=== PATIENT | male | born 1955 | race Caucasian/White ===

== ENCOUNTER 2018-03-05 08:41 | Emergency (ER) | payer BC, OTHER ==
[2018-03-05] MEDS ORDERED: ONDANSETRON 4 MG/2 ML VIAL ONE (08:57)
[2018-03-05] MEDS ORDERED: KETOROLAC 30 MG/ML INJ ONE (08:57)
[2018-03-05 09:09] LABS: Absolute Lymphocytes (CBC) 1.5 K/uL (0.7-4.9); Absolute Monocytes 0.8 K/uL (0.1-1.3); Absolute Neutrophil 5.3 K/uL (1.8-8.0); Eosinophils % 4.8 % (0-4.4); Hematocrit 43.2 % (39.6-49.0); Lymphocytes % 18.4 % (15.3-44.8); MCH 32.8 pg (27.0-35.0); MPV 7.4 fL (7.6-11.3); Monocytes % 9.7 % (3.3-12.3)
--- NOTE | 2018-03-05 09:24 | RAD REPORT ---
EXAM DESCRIPTION: CT - Stone Protocol - 03/05/2018 9:06 am CLINICAL HISTORY: Abdominal pain, left flank pain COMPARISON: None. TECHNIQUE: Axial 5 mm thick images were obtained without oral or IV contrast. The nnyem-in-rjsa span s the entirety of the system including uppermost abdomen and lung bases. All CT scans are performed using dose optimization technique as appropriate and may include automated exposure control or mA/KV adjustment according to patient size. FINDINGS: Mild left-sided hydronephrosis is present secondary to a 4 millimeter distal left ureteral calculus at the UVJ. Punctate less than 1 mm caliceal calcifications seen in each kidney. No right-s ided hydronephrosis. Left kidney is mildly edematous. No suspicious renal masses. Isodense masses and pyelonephritis are not excluded on a stone protocol CT scan. Partially contracted urinary bladder sh ows no suspicious findings. Prostate gland is mildly prominent. Central calcifications are present. N o seminal vesicle abnormality. Imaged portions of the liver, spleen and pancreas show no suspicious findings on non-contrast imaging . Gallbladder is contracted. No biliary tree dilatation. No significant adrenal finding. No suspicious bowel findings. Small fat only right inguinal hernia present. No mass or bulky lymphadenopathy. No free air, free fluid or inflammatory stranding. No significant bony abnormality. IMPRESSION: Mild left-sided hydronephrosis secondary to a 4 mm left ureteral UVJ calculus. Isodense masses and pyelonephritis are not excluded on stone protocol technique.
[2018-03-05 09:33] LABS: Bilirubin Direct 0.2 mg/dL (0-0.2); Bilirubin Total 0.7 mg/dL (0.2-1.0); Potassium 3.6 mmol/L (3.5-5.1)
[2018-03-05 09:49] LABS: Urine Bacteria <20 /HPF (NONE SEEN); Urine RBC 20-50 /HPF (NONE SEEN)
[2018-03-05 09:49] LABS: Urine Blood 2+ (NEG); Urine Glucose NEGATIVE (NEG); Urine Protein NEGATIVE (NEG); Urine Specific Gravity 1.015 (1.005-1.030)
[2018-03-05 09:50] LABS: Urine Culture Reflex Order NOT NEEDED
--- NOTE | 2018-03-05 09:58 | EDPHYS ---
Physician Documentation [facility] Name: Farhad Sapp Age: 62 yrs Sex: Male : 1955 Arrival Date: 03/05/2018 Time: 08:43 Bed 17 Private MD: Karen Rizo F ED Physician Jesus Avila HPI: 03/05 08:55 This 62 yrs old Male presents to ER via Ambulatory with complaints of Back cp Pain. 08:55 The patient presents with pain that is acute, with no known mechanism of injury, and cp tenderness. The symptoms are located in the left low back and left mid back. Onset: The symptoms/episode began/occurred suddenly, this morning. The pain does not radiate. Associated signs and symptoms: Pertinent positives: nausea, Pertinent negatives: chest pain, constipation, dysuria, fever, incontinence, numbness, weakness. The problem was sustained from unknown cause. Modifying factors: the patient symptoms are aggravated by any movement. Historical: - Allergies: 08:53 No Known Allergies; ss - Home Meds: 08:53 atorvastatin 80 mg oral tab 1 tab once daily [Active]; amlodipine 2.5 mg tab 1 tab once ss daily [Active]; aspirin 81 mg Oral TbEC 1 tab once daily [Active]; - PMHx: 08:53 Hypertension; High Cholesterol; ss - PSHx: 08:53 None; ss - Immunization history:: Adult Immunizations up to date. - Social history:: Smoking status: Patient/guardian denies using tobacco. - Ebola Screening: : Patient denies exposure to infectious person Patient denies travel to an Ebola-affected area in the 21 days before illness onset. ROS: 09:00 Constitutional: Negative for body aches, chills, fever, poor PO intake. cp 09:00 Eyes: Negative for injury, pain, redness, and discharge. cp 09:00 ENT: Negative for drainage from ear(s), ear pain, sore throat, difficulty swallowing, cp difficulty handling secretions. 09:00 Neck: Negative for pain with movement, pain at rest, stiffness, tenderness, bony tenderness. 09:00 Cardiovascular: Negative for chest pain, palpitations. 09:00 Respiratory: Negative for cough, shortness of breath, wheezing. 09:00 Abdomen/GI: Positive for nausea, Negative for abdominal pain, vomiting, diarrhea, constipation, black/tarry stool, rectal bleeding. 09:00 Back: Positive for flank pain, on the left, Negative for injury or acute deformity. 09:00 : Negative for urinary symptoms, bladder incontinence, testicular pain 09:00 MS/extremity: Negative for injury or acute deformity, paresthesias, swelling, cp tenderness. 09:00 Skin: Negative for cellulitis, rash. 09:00 Neuro: Negative for altered mental status, dizziness, headache, numbness, weakness. 09:00 All other systems are negative. Exam: 09:05 Head/Face: Normocephalic, atraumatic. cp 09:05 Constitutional: The patient appears in no acute distress, alert, awake, non-diaphoretic, non-toxic, well developed, well nourished, in obvious pain, uncomfortable. 09:05 Eyes: Periorbital structures: appear normal, Conjunctiva: normal, no exudate, no injection, Sclera: no appreciated abnormality, Lids and lashes: appear normal, bilaterally. 09:05 ENT: External ear(s): are unremarkable, Nose: is normal, Mouth: Lips: moist, Oral mucosa: pink and intact, moist, Posterior pharynx: is normal, airway is patent, no erythema, no exudate. 09:05 Neck: ROM/movement: is normal, is supple, without pain, no range of motions limitations, no nuchal rigidity. 09:05 Chest/axilla: Inspection: normal, Palpation: is normal, no crepitus, no tenderness. 09:05 Cardiovascular: Rate: normal, Rhythm: regular, Edema: is not appreciated, JVD: is not appreciated. 09:05 Respiratory: the patient does not display signs of respiratory distress, Respirations: normal, no use of accessory muscles, no retractions, no splinting, no tachypnea, labored breathing, is not present, Breath sounds: are clear throughout, no decreased breath sounds, no stridor, no wheezing. 09:05 Abdomen/GI: Inspection: abdomen appears normal, Bowel sounds: active, all quadrants, Palpation: abdomen is soft and non-tender, in all quadrants, rebound tenderness, is not appreciated, voluntary guarding, is not appreciated, involuntary guarding, is not appreciated. 09:05 Back: CVA tenderness, is noted on the left, Straight leg raises: of both lower extremities does not illicit pain. 09:05 Musculoskeletal/extremity: Exam is negative for calf tenderness, decreased range of motion, injury. 09:05 Skin: cellulitis, is not appreciated, no rash present. 09:05 Neuro: Orientation: to person, place \T\ time. Mentation: lucid, able to follow commands, Cerebellar function: is grossly normal, Motor: moves all fours, strength is normal, Sensation: no obvious gross deficits. Vital Signs: 08:53 Weight 86.18 kg; Height 6 ft. 0 in. (182.88 cm); Pain 8/10; ss 09:00 BP 161 / 83; Pulse 94; Resp 20; Pulse Ox 100% on R/A; rb1 09:50 BP 150 / 91; Pulse 84; Resp 17; Pulse Ox 100% on R/A; mh5 10:35 BP 154 / 84; Pulse 79; Resp 18; Pulse Ox 98% on R/A; rb1 11:12 BP 147 / 90; Pulse 80; Resp 17; Pulse Ox 98% on R/A; Pain 0/10; rb1 08:53 Body Mass Index 25.77 (86.18 kg, 182.88 cm) ss MDM: 08:51 Patient medically screened. cp 09:30 Differential diagnosis: Basilar Pneumonia Cholelithiasis Pyelonephritis Renal cp Infarction ruptured disc, Ureterolithiasis vertebral fracture. 09:55 Data reviewed: vital signs, nurses notes, lab test result(s), radiologic studies, CT cp scan. 09:55 Response to treatment: the patient's symptoms have markedly improved after treatment, cp VSS. Pain and nausea improved. Will discharge patient to home for continued monitoring. 03/05 08:50 Order name: Amylase, Serum; Complete Time: 09:46 cp 03/05 08:50 Order name: Basic Metabolic Panel; Complete Time: 09:46 cp 03/05 09:46 Interpretation: GLUC 134; BUN 21; GFR 56. cp 03/05 08:50 Order name: CBC with Diff; Complete Time: 09:30 cp 08 09:46 Interpretation: Normal except: MPV 7.4; EOSINOPHIL % 4.8. cp 03/05 08:50 Order name: Creatinine for Radiology; Complete Time: 09:30 cp 03/05 08:50 Order name: Hepatic Function; Complete Time: 09:46 cp 03/05 08:50 Order name: Lipase; Complete Time: 09:46 cp 03/05 08:50 Order name: CT Stone Protocol; Complete Time: 09:30 cp 03/05 08:50 Order name: Urine Microscopic Only; Complete Time: 09:51 cp 03/05 08:50 Order name: IV Saline Lock; Complete Time: 09:03 cp 02 09:35 Order name: Urine Dipstick--Ancillary (enter results); Complete Time: 09:51 eb 03/05 08:50 Order name: Labs collected and sent; Complete Time: 09:03 cp 03/05 08:50 Order name: Urine Dipstick-Ancillary (obtain specimen); Complete Time: 10:15 cp 03/05 09:52 Order name: Vital Signs: please update to include temp; Complete Time: 09:58 cp Administered Medications: 09:00 Drug: Zofran 4 mg Route: IVP; Site: right antecubital; rb1 09:22 Follow up: Response: No adverse reaction; Nausea is decreased rb1 09:00 Drug: TORadol 30 mg Route: IVP; Site: right antecubital; rb1 09:22 Follow up: Response: No adverse reaction; Pain is decreased rb1 10:00 Drug: Magnesium Sulfate 1 grams Route: IVPB; Infused Over: 1 hrs; Site: right rb1 antecubital; 11:12 Follow up: Response: No adverse reaction; IV Status: Completed infusion rb1 10:05 Drug: Flomax 0.4 mg Route: PO; rb1 10:30 Follow up: Response: No adverse reaction; Pain is decreased rb1 Disposition: 11:24 Co-signature as Attending Physician, Jesus Avila MD I agree with the assessment and kdr plan of care. Disposition: 03/05/18 09:57 Discharged to Home. Impression: Calculus of kidney and ureter - Left. - Condition is Stable. - Discharge Instructions: Kidney Stones. - Prescriptions for Tylenol- Codeine #3 300-30 mg Oral Tablet - take 2 tablets by ORAL route every 6 hours As needed; 20 tablet. Zofran 4 mg Oral Tablet - take 1 tablet by ORAL route every 12 hours As needed; 20 tablet. Flomax 0.4 mg Oral Capsule, Sust. Release 24 hr - take 1 capsule by ORAL route once daily As needed 1/2 hour following the same meal each day; 5 capsule. Cipro 500 mg Oral Tablet - take 1 tablet by ORAL route every 12 hours for 7 days; 14 tablet. - Medication Reconciliation Form, Thank You Letter, Antibiotic Education, Prescription Opioid Use form. - Follow up: Tiara Toro MD; When: 1 - 2 days; Reason: Recheck today's complaints. - Problem is new. - Symptoms have improved. Signatures: Dispatcher [employer] EDMS Jesus Avila MD MD [facility] Zahra Garcia RN RN ss Raoul Dale PA PA cp Sandrine Flores, RN RN rb1 Corrections: (The following items were deleted from the chart) 11:14 09:57 03/05/2018 09:57 Discharged to Home. Impression: Calculus of kidney and ureter - rb1 Left. Condition is Stable. Forms are Medication Reconciliation Form, Thank You Letter, Antibiotic Education, Prescription Opioid Use. Follow up: Tiara Toro; When: 1 - 2 days; Reason: Recheck today's complaints. Problem is new. Symptoms have improved. cp
--- NOTE | 2018-03-05 09:58 | ER ---
Nurse's Notes [facility] Name: Farhad Sapp Age: 62 yrs Sex: Male : 1955 Arrival Date: 03/05/2018 Time: 08:43 Bed 17 Private MD: Karen Rizo F Diagnosis: Calculus of kidney and ureter-Left Presentation: 03/05 08:49 Presenting complaint: Patient states: L flank pain that began suddenly while at work ss today. Denies injury. Describes pain as "pulling". Transition of care: patient was not received from another setting of care. Onset of symptoms was March 05, 2018. Risk Assessment: Do you want to hurt yourself or someone else? Patient reports no desire to harm self or others. Care prior to arrival: None. 08:49 Method Of Arrival: Ambulatory ss 08:49 Acuity: DAYO 3 ss 08:50 Initial Sepsis Screen: Does the patient meet any 2 criteria? No. Patient's initial rb1 sepsis screen is negative. Does the patient have a suspected source of infection? No. Patient's initial sepsis screen is negative. Historical: - Allergies: 08:53 No Known Allergies; ss - Home Meds: 08:53 atorvastatin 80 mg oral tab 1 tab once daily [Active]; amlodipine 2.5 mg tab 1 tab once ss daily [Active]; aspirin 81 mg Oral TbEC 1 tab once daily [Active]; - PMHx: 08:53 Hypertension; High Cholesterol; ss - PSHx: 08:53 None; ss - Immunization history:: Adult Immunizations up to date. - Social history:: Smoking status: Patient/guardian denies using tobacco. - Ebola Screening: : Patient denies exposure to infectious person Patient denies travel to an Ebola-affected area in the 21 days before illness onset. Screenin:50 Abuse screen: Denies threats or abuse. Nutritional screening: No deficits noted. rb1 Tuberculosis screening: No symptoms or risk factors identified. Fall Risk None identified. Assessment: 08:50 General: Appears distressed, uncomfortable, Behavior is anxious. Pain: Complains of rb1 pain in left mid back Pain currently is 10 out of 10 on a pain scale. Neuro: Level of Consciousness is awake, alert, obeys commands, Oriented to person, place, time, situation. Cardiovascular: Capillary refill < 3 seconds is brisk in bilateral fingers. Respiratory: Airway is patent Respiratory effort is even, unlabored, Respiratory pattern is regular, symmetrical. GI: Reports nausea. : No signs and/or symptoms were reported regarding the genitourinary system. Derm: Skin is pink, warm \\T\\ dry. 09:04 Reassessment: pt. went to CT. rb1 09:45 Reassessment: Patient appears in no apparent distress at this time. Patient and/or rb1 family updated on plan of care and expected duration. Pain level reassessed. Patient is alert, oriented x 3, equal unlabored respirations, skin warm/dry/pink. Patient states symptoms have improved. 09:57 Reassessment: Discharge pending due to Magnesium IV infusing. rb1 10:45 Reassessment: Patient appears in no apparent distress at this time. Patient and/or rb1 family updated on plan of care and expected duration. Pain level reassessed. Patient is alert, oriented x 3, equal unlabored respirations, skin warm/dry/pink. Vital Signs: 08:53 Weight 86.18 kg; Height 6 ft. 0 in. (182.88 cm); Pain 8/10; ss 09:00 BP 161 / 83; Pulse 94; Resp 20; Pulse Ox 100% on R/A; rb1 09:50 BP 150 / 91; Pulse 84; Resp 17; Pulse Ox 100% on R/A; mh5 10:35 BP 154 / 84; Pulse 79; Resp 18; Pulse Ox 98% on R/A; rb1 11:12 BP 147 / 90; Pulse 80; Resp 17; Pulse Ox 98% on R/A; Pain 0/10; rb1 08:53 Body Mass Index 25.77 (86.18 kg, 182.88 cm) ED Course: 08:43 Patient arrived in ED. sb2 08:44 Karen Rizo MD is Private Physician. sb2 08:50 Raoul Dale PA is PHCP. cp 08:50 Jesus Avila MD is Attending Physician. cp 08:50 Triage completed. ss 08:51 Sandrine Flores, LAURITA is Primary Nurse. rb1 08:53 Arm band placed on left wrist. ss 09:00 Inserted saline lock: 22 gauge in right antecubital area, using aseptic technique. rb1 Blood collected. 09:04 CT completed. Patient tolerated procedure well. Patient moved to CT via wheelchair. sj Patient moved back from CT. 09:06 CT Stone Protocol In Process Unspecified. EDMS 09:35 Urine collected: clean catch specimen, clear. 5 09:38 Patient has correct armband on for positive identification. Bed in low position. Call 5 light in reach. Side rails up X 1. Pulse ox on. NIBP on. 09:56 Tiara Toro MD is Referral Physician. cp 11:13 No provider procedures requiring assistance completed. IV discontinued, intact, rb1 bleeding controlled, No redness/swelling at site. Pressure dressing applied. Administered Medications: 09:00 Drug: Zofran 4 mg Route: IVP; Site: right antecubital; rb1 09:22 Follow up: Response: No adverse reaction; Nausea is decreased rb1 09:00 Drug: TORadol 30 mg Route: IVP; Site: right antecubital; rb1 09:22 Follow up: Response: No adverse reaction; Pain is decreased rb1 10:00 Drug: Magnesium Sulfate 1 grams Route: IVPB; Infused Over: 1 hrs; Site: right rb1 antecubital; 11:12 Follow up: Response: No adverse reaction; IV Status: Completed infusion rb1 10:05 Drug: Flomax 0.4 mg Route: PO; rb1 10:30 Follow up: Response: No adverse reaction; Pain is decreased rb1 Outcome: 09:57 Discharge ordered by MD. cp 11:13 Discharged to home ambulatory. rb1 11:13 Condition: stable 11:13 Discharge instructions given to patient, Instructed on discharge instructions, follow up and referral plans. medication usage, Demonstrated understanding of instructions, follow-up care, medications, Prescriptions given X 4. 11:14 Patient left the ED. rb1 Signatures: Dispatcher [employer] Jodi Dela Cruz Shelby, RN RN Raoul Corey, STEPAN PA cp Sandrine Flores, RN RN rb1 Loretta Chu 5 Yina Minor2
[2018-03-05] MEDS ORDERED: TAMSULOSIN 0.4 MG SR CAP ONE (10:04)
[2018-03-05] MEDS ORDERED: MAGNESIUM SULFATE 1 gm IVPB 1 GM/100 ML BAG IV ONE (10:04)
[2018-03-05 11:22] VITALS: O2SAT 98
[2018-03-05 11:24] VITALS: BP 147/90
== END 2018-03-05 11:14 | disposition home or self-care (01) ==
LOC: ER 08:41
DX: N20.2 Calculus of kidney with calculus of ureter (principal); I10 Essential (primary) hypertension; E78.00 Pure hypercholesterolemia, unspecified
CPT/HCPCS: 36415; 74176; 76377; 80048; 80076; 81003; 81015; 82150; 83690; 85025; 96365; 96375; 99284; J2405; J3475; Q9967

== ENCOUNTER 2018-04-27 09:39 | Day surgery (SDC) | payer BC ==
[2018-04-27] MEDS ORDERED: NA CHLORIDE 0.9% 500 ML ONE (10:01)
[2018-04-27 10:21] VITALS: O2SAT 98
[2018-04-27] MEDS ORDERED: NS 0.9% VIAL 10 ML ONE (10:32)
[2018-04-27] MEDS ORDERED: MOXIFLOXACIN HCL 10 DROPS/ML **OR USE OPTH ONE (10:33)
[2018-04-27] MEDS ORDERED: BALANCED SALT IRRIG PLAIN 500 ML BTL IRR ONE (10:33)
[2018-04-27] MEDS ORDERED: EPINEPHRINE/PF 1 MG/ML AMP ONE (10:33)
[2018-04-27] MEDS ORDERED: DUOVISC 1 KIT OPTH ONE (10:33)
[2018-04-27] MEDS: CYCLOPENTOLATE 1% OPTH 2 ML ONE ×3 (10:45→10:55)
[2018-04-27] MEDS: PHENYLEPHRINE 10% OPTH 5ML ONE ×3 (10:45→10:55)
[2018-04-27] MEDS: TETRACAINE HCL 0.5% 2ML OPTH ONE ×2 (11:13→11:28)
[2018-04-27] MEDS: LIDOCAINE 2% MPF 5 ML VIAL ONE ×2 (11:13→11:29)
[2018-04-27] MEDS: BUPIVACAINE 0.25% PF 10 ML VIAL ONE ×2 (11:14→11:29)
[2018-04-27] MEDS ORDERED: PROPOFOL 200 MG/20 ML VIAL IV ONE (11:17)
[2018-04-27] MEDS ORDERED: LIDOCAINE 2% MPF 5 ML VIAL ONE (11:18)
--- NOTE | 2018-04-27 12:15 | P.BOP ---
Preoperative diagnosis: Nuclear sclerotic cataract OS Postoperative diagnosis: Same Primary procedure: Phacoemulsification with IOL OS Estimated blood loss: None Anesthesia: Local (Subtenon's infusion with anesthesia for cataract surgery) Complications: None Implants: ZCB00 +20.5 Transferred to: Other (Day surgery) Condition: Good
[2018-04-27 14:55] VITALS: BP 163/72; TEMP 98.2
--- NOTE | 2018-04-27 23:09 | OP ---
Date of Procedure: 04/27/2018 Surgeon: Sosa Schulz MD Anesthesiologist: Ethel Waters CRNA and Jamel Pickens MD. Preoperative Diagnoses: Nuclear sclerotic cataract, left eye; regular astigmatism, left eye. Operation Performed: Phacoemulsification with intraocular lens implant with limbal relaxing incision, left eye. Anesthesia: Per cataract surgery. Complications: None. Description Of Procedure: In day surgery, the patient was prepped with Betadine and draped. A conjunctival incision was made in the inferior nasal quadrant with Portillo scissors. A sub-Tenon block consisting of a 1:1 mixture of 2% Xylocaine and 0.25% bupivacaine was placed through the conjunctival incision with a blunt cannula. A Honan balloon was placed over the eye and the patient was transferred to the operating room. In the operating room the patient was prepped and draped in the usual sterile fashion for ophthalmic surgery. A lid speculum was placed in the left eye. Two paracentesis sites were made superiorly and inferiorly in the limbal cornea. Viscoat was placed in the anterior chamber and a crescent blade was used to make a corneal groove and tunnel, and a keratome was used to enter the anterior chamber. Provisc was placed in the anterior chamber and a 360 degree capsulotomy was performed with a cystitome. The lens was hydrodissected with BSS and rotated freely. The lens was removed with a stop and chop technique. 19.09 phaco CDE was used to remove the lens. Residual cortex was removed with the irrigation and aspiration. Provisc was placed in the capsular bag. A ZCB00 +20.5 lens was placed in the capsular bag without complications. Irrigation and aspiration was used to remove residual viscoelastic. The paracentesis sites were hydrated with BSS. The wound and paracentesis sites were inspected and found to be watertight. Vigamox 0.07 cc was placed intracamerally at the end of the procedure. The eye was irrigated with balanced salt solution. The eye was patched with a soft cotton patch and Ayala metal shield. The patient was returned to day surgery in good condition. Comments: Limbal relaxing incision was created at 25 degrees with a 600 micron blade. A 35 degree arc was created nasally Discharge Instructions: Mr. Sapp is discharged to home in good condition and is to follow up with Dr. Schulz in the morning. JHL/MODL Voice ID: [id number] Report ID: [id number] DESI
== END 2018-04-27 12:50 | disposition home or self-care (01) ==
LOC: OR 09:39
PROVIDERS: ATTEND Ophthalmology Retina Specialist
PROC: 08RK3JZ Replacement of Left Lens with Synthetic Substitute, Percutaneous Approach (ICD-10-PCS; principal; 2018-04-27 10:45)
DX: H25.12 Age-related nuclear cataract, left eye (principal); H52.222 Regular astigmatism, left eye; I10 Essential (primary) hypertension; E78.00 Pure hypercholesterolemia, unspecified; Z83.518 Family history of other specified eye disorder; Z82.49 Family history of ischemic heart disease and other diseases of the circulatory system
CPT/HCPCS: J0171

== ENCOUNTER 2018-06-15 07:15 | Day surgery (SDC) | payer BC ==
[2018-06-15] MEDS ORDERED: BALANCED SALT IRRIG PLAIN 500 ML BTL IRR ONE (07:47)
[2018-06-15] MEDS ORDERED: DUOVISC 1 KIT OPTH ONE (07:47)
[2018-06-15] MEDS ORDERED: EPINEPHRINE/PF 1 MG/ML AMP ONE (07:47)
[2018-06-15] MEDS ORDERED: NS 0.9% VIAL 10 ML ONE (07:47)
[2018-06-15] MEDS ORDERED: MOXIFLOXACIN HCL 10 DROPS/ML **OR USE OPTH ONE (07:48)
[2018-06-15] MEDS: CYCLOPENTOLATE 1% OPTH 2 ML ONE ×3 (08:15→08:25)
[2018-06-15] MEDS: PHENYLEPHRINE 10% OPTH 5ML ONE ×3 (08:15→08:25)
[2018-06-15] MEDS ORDERED: NA CHLORIDE 0.9% 500 ML ONE (08:16)
[2018-06-15] MEDS: TETRACAINE HCL 0.5% 2ML OPTH ONE ×2 (08:22→08:32)
[2018-06-15] MEDS: LIDOCAINE 2% MPF 5 ML VIAL ONE ×2 (08:23→08:33)
[2018-06-15] MEDS: BUPIVACAINE 0.25% PF 10 ML VIAL ONE ×2 (08:23→08:33)
[2018-06-15 08:29] VITALS: O2SAT 100
[2018-06-15] MEDS ORDERED: MIDAZOLAM HCL 2 MG/2 ML INJ ONE (08:53)
[2018-06-15] MEDS ORDERED: PROPOFOL 200 MG/20 ML VIAL IV ONE (08:54)
--- NOTE | 2018-06-15 09:16 | P.BOP ---
Preoperative diagnosis: Nuclear sclerotic cataract and regular astigmatism OD Postoperative diagnosis: Phacoemulsification with IOL OD and limbal relaxing incision Estimated blood loss: None Anesthesia: Local (Subtenon's infusion with anesthesia for cataract surgery) Complications: None Implants: ZCB00 +21.0 Transferred to: Other (Day surgery) Condition: Good
[2018-06-15] MEDS ORDERED: LIDOCAINE 1% MPF 2 ML AMPULE ONE (09:18)
[2018-06-15 09:28] VITALS: BP 138/75; TEMP 97.3
--- NOTE | 2018-06-15 20:01 | OP ---
Date of Procedure: 06/15/2018 Surgeon: Sosa Schulz MD Anesthesiologist: Antonia Suggs CRNA and Armando Huizar MD. Preoperative Diagnoses: 1.Nuclear sclerotic cataract, right eye. 2.Regular astigmatism, right eye. Operation Performed: 1.Phacoemulsification with intraocular lens implant, right eye. 2.Limbal relaxing incision, right eye. Anesthesia: Per cataract surgery. Complications: None. Description Of Procedure: In day surgery, the patient was prepped with Betadine and draped. A conju nctival incision was made in the inferior nasal quadrant with Portillo scissors. A sub-Tenon block c onsisting of a 1:1 mixture of 2% Xylocaine and 0.25% bupivacaine was placed through the conjunctival incision with a blunt cannula. A Honan balloon was placed over the eye and the patient was transferr ed to the operating room. In the operating room the patient was prepped and draped in the usual sterile fashion for ophthalmic surgery. A lid speculum was placed in the right eye. Two paracentesis sites were made superiorly an d inferiorly in the limbal cornea. Viscoat was placed in the anterior chamber and a crescent blade w as used to make a corneal groove and tunnel, and a keratome was used to enter the anterior chamber. Provisc was placed in the anterior chamber and a 360 degree capsulotomy was performed with a cystitom e. The lens was hydrodissected with BSS and rotated freely. The lens was removed with a stop and ch op technique. A 7.64 phaco CDE was used to remove the lens. Residual cortex was removed with the ir rigation and aspiration. Provisc was placed in the capsular bag. A ZCB00 +21.0 lens was placed in t he capsular bag without complications. Irrigation and aspiration was used to remove residual viscoel astic. The paracentesis sites were hydrated with BSS. The wound and paracentesis sites were inspect ed and found to be watertight. Vigamox 0.07 cc was placed intracamerally at the end of the procedure . The eye was irrigated with balanced salt solution. The eye was patched with a soft cotton patch a nd Ayala metal shield. The patient was returned to day surgery in good condition. Comments: A limbal relaxing incision was created nasally at the beginning of surgery. A 35 degree a rc was created at 132 degrees with a 550 micron blade. Discharge Instructions: Mr. Sapp is discharged to home in good condition and is to follow up with Dr. Schulz in the morning. NIC/DELGADO Voice ID: [id number] Report ID: [id number]
== END 2018-06-15 09:40 | disposition home or self-care (01) ==
LOC: OR 07:15
PROVIDERS: ATTEND Ophthalmology Retina Specialist
PROC: 08Q8XZZ Repair Right Cornea, External Approach (ICD-10-PCS; 2018-06-15)
PROC: 08RJ3JZ Replacement of Right Lens with Synthetic Substitute, Percutaneous Approach (ICD-10-PCS; principal; 2018-06-15 09:00)
DX: H25.11 Age-related nuclear cataract, right eye (principal); H52.221 Regular astigmatism, right eye; I10 Essential (primary) hypertension; E78.00 Pure hypercholesterolemia, unspecified; Z79.82 Long term (current) use of aspirin; Z82.49 Family history of ischemic heart disease and other diseases of the circulatory system; Z83.518 Family history of other specified eye disorder
CPT/HCPCS: J0171; J2001; J2250; J2704

== ENCOUNTER 2022-06-17 09:47 | Inpatient (IN) | payer OTHER ==
[2022-06-17] MEDS ORDERED: FAMOTIDINE 20 MG/2 ML VIAL IV ONE (12:15)
[2022-06-17] MEDS ORDERED: NA CHLORIDE 0.9% 1,000 ML ONE (12:15)
[2022-06-17] MEDS ORDERED: ONDANSETRON 4 MG/2 ML VIAL ONE (12:15)
[2022-06-17 12:38] LABS: Absolute Lymphocytes (CBC) 0.9 K/uL (0.7-4.9); Hematocrit 45.4 % (39.6-49.0); Lymphocytes % 3.8 % (15.3-44.8); MPV 8.3 fL (7.6-11.3); RBC Red Blood Cell Count 4.77 M/uL (4.33-5.43)
[2022-06-17 13:00] LABS: Albumin 3.2 g/dL (3.4-5.0); Bilirubin Total 2.8 mg/dL (0.2-1.0); Protein, Total 7.4 g/dL (6.4-8.2)
[2022-06-17] MEDS ORDERED: NA CHLORIDE 0.9% 100 ML IV ONE (13:02)
[2022-06-17] MEDS ORDERED: MORPHINE 4 MG/ML SYR ONE (13:02)
[2022-06-17] MEDS ORDERED: PIPERACIL/TAZO 3.375 GM VIAL IV ONE (13:03)
[2022-06-17 13:05] LABS: Potassium 2.6 mmol/L (3.5-5.1)
[2022-06-17 13:30] LABS: Blood Morphology Comment NOT SEEN (NOT SEEN); Platelet Estimate ADEQ
[2022-06-17 13:32] LABS: Protime INR 1.2
--- NOTE | 2022-06-17 13:41 | RAD REPORT ---
EXAM DESCRIPTION: CT - Abdomen Pelvis Wo Contrast - 06/17/2022 1:34 pm CLINICAL HISTORY: Abdominal pain. right sided abdominal pain, vomiting COMPARISON: Stone Protocol dated 03/05/2018 TECHNIQUE: CT imaging of the abdomen and pelvis was performed without contrast. Solid organ, bowel a nd vascular assessment is limited due to lack of IV and oral contrast. All CT scans are performed using dose optimization technique as appropriate and may include automated exposure control or mA/KV adjustment according to patient size. FINDINGS: There is mild linear subsegmental atelectasis in both lung bases. A prominent diffuse fatty liver pattern is seen.There is cstp-[id number]-[id number] inflammation surrounding th e pancreas. The spleen, adrenal glands and kidneys are within normal limits. No bowel obstruction, free air, free fluid or abscess. Small fat containing umbilical hernia. Small f at containing right inguinal hernia. Sigmoid diverticulosis without diverticulitis. The appendix is n ormal. The osseous structures are within normal limits. IMPRESSION: Moderate acute pancreatitis pattern is present. A limited non-contrast examination was performed as detailed.
[2022-06-17] MEDS ORDERED: Ringers Lactate 1,000 ML IV ONE (13:54)
--- NOTE | 2022-06-17 14:03 | RAD REPORT ---
EXAM DESCRIPTION: US - Abdomen Exam Limited - 06/17/2022 1:55 pm CLINICAL HISTORY: right sided abdominal pain Right upper quadrant abdominal pain COMPARISON: No comparisons FINDINGS: The gallbladder demonstrates no gallstones. No pericholecystic fluid or gallbladder wall t hickening. The common bile duct is normal measuring 4 mm. The liver demonstrates no findings of intrahepatic biliary dilatation. IMPRESSION: Unremarkable examination.
--- NOTE | 2022-06-17 14:39 | EDPHYS ---
Physician Documentation [facility] Name: Farhad Sapp Age: 66 yrs Sex: Male : 1955 Arrival Date: 06/17/2022 Time: 09:50 Bed 26 Private MD: ED Physician Akshat Jamison HPI: 06/17 10:36 This 66 yrs old Male presents to ER via Ambulatory with complaints of Vomiting. jmm 10:36 The patient presents to the emergency department with nausea, vomiting, abdominal pain, jmm of the right upper quadrant and right lower quadrant. Onset: The symptoms/episode began/occurred gradually. 11:28 Possible causes: unknown. The symptoms are aggravated by nothing. The symptoms are jmm alleviated by nothing. Associated signs and symptoms: Pertinent positives: abdominal pain, Pertinent negatives: fever. This is a 66 year old male with a history of hlp, htn that presents to the ED with complaints of right sided abdominal pain, vomiting, diarrhea beginning last night. patient denies any recent infectious exposure, denies recent abx, denies any recent travel. . Historical: - Allergies: 11:13 No Known Allergies; ld1 - Home Meds: 11:13 amlodipine 2.5 mg tab 1 tab once daily [Active]; aspirin 81 mg Oral TbEC 1 tab once ld1 daily [Active]; atorvastatin 80 mg Oral tab 1 tab once daily [Active]; 11:13 metoprolol tartrate 25 mg Oral tab 1 tab 2 times per day [Active]; furosemide 40 mg ld1 Oral tab 1 tab once daily [Active]; telmisartan 80 mg oral tab 1 tab [Active]; - PMHx: 11:13 High Cholesterol; Hypertension; ld1 - PSHx: 11:13 None; ld1 - Immunization history:: Adult Immunizations up to date, Client reports receiving the 2nd dose of the Covid vaccine. - Social history:: Smoking status: Patient denies any tobacco usage or history of. Patient uses alcohol, on a daily basis. ROS: 11:28 Constitutional: Negative for fever, chills, and weight loss, Cardiovascular: Negative jmm for chest pain, palpitations, and edema, Respiratory: Negative for shortness of breath, cough, wheezing, and pleuritic chest pain. 11:28 Abdomen/GI: Positive for abdominal pain, nausea and vomiting, diarrhea. 11:28 All other systems are negative. Exam: 11:28 Constitutional: This is a well developed, well nourished patient who is awake, alert, jmm and in no acute distress. Head/Face: atraumatic. Eyes: EOMI, no conjunctival erythema appreciated ENT: Moist Mucus Membranes Neck: Trachea midline, Supple Chest/axilla: Normal chest wall appearance and motion. Cardiovascular: Regular rate and rhythm. No edema appreciated Respiratory: Normal respirations, no respiratory distress appreciated 11:28 Back: Normal ROM Skin: General appearance color normal MS/ Extremity: Moves all extremities, no obvious deformities appreciated, no edema noted to the lower extremities Neuro: Awake and alert Psych: Behavior is normal, Mood is normal, Patient is cooperative and pleasant 11:28 Abdomen/GI: Inspection: abdomen appears normal, Bowel sounds: normal, Palpation: soft, moderate abdominal tenderness, in the right upper quadrant and right lower quadrant. Vital Signs: 11:13 BP 141 / 81; Pulse 123; Resp 22; Temp 97.6(O); Pulse Ox 97% on R/A; Weight 90.72 kg; ld1 Height 6 ft. 0 in. (182.88 cm); Pain 8/10; 12:37 BP 142 / 84; Pulse 120; Resp 22; Pulse Ox 98% on R/A; em6 14:15 BP 150 / 89; Pulse 91; Resp 20; Pulse Ox 100% on R/A; em6 15:30 BP 135 / 78; Pulse 110; Resp 20; Pulse Ox 97% on R/A; em6 16:00 BP 124 / 68; Pulse 110; Resp 20; Pulse Ox 96% on R/A; em6 11:13 Body Mass Index 27.12 (90.72 kg, 182.88 cm) ld1 MDM: 10:36 Patient medically screened. [facility] 13:55 Data reviewed: vital signs, nurses notes. Counseling: I had a detailed discussion with elizabeth the patient and/or guardian regarding: the historical points, exam findings, and any diagnostic results supporting the discharge/admit diagnosis, lab results, radiology results, the need for further work-up and treatment in the hospital. 14:37 ED course: I discussed the patient with ELIOT Dugan whom accepted the patient to Dr. elizabeth Wheatley service. I do not suspect sepsis at this time. No source has been identified. Elevated wbc, lactate most likely due to pancreatitis. . 06/17 10:36 Order name: CBC with Diff; Complete Time: 13:34 [facility] 06/17 10:36 Order name: CMP; Complete Time: 13:06 [facility] 06/17 10:36 Order name: Lipase; Complete Time: 13:06 [facility] 06/17 12:48 Order name: Lactate; Complete Time: 13:58 [facility] 06/17 12:49 Order name: Blood Culture Adult (2) [facility] 06/17 12:49 Order name: PT-INR; Complete Time: 13:34 [facility] 06/17 12:49 Order name: Manual Differential; Complete Time: 13:34 [facility] 06/17 12:56 Order name: CREATININE WHOLE BLOOD; Complete Time: 12:56 [facility] 06/17 15:04 Order name: SARS-COV-2 Antigen Rapid; Complete Time: 15:51 bd 06/17 15:06 Order name: Potassium [facility] 06/17 15:10 Order name: NT PRO-BNP [facility] 06/17 15:10 Order name: T4 Free [facility] 06/17 15:10 Order name: Thyroid Stimulating Hormone [facility] 06/17 15:11 Order name: Urinalysis [facility] 06/17 13:14 Order name: Abdomen ; Complete Time: 13:44 [facility] 06/17 13:34 Order name: US Abdomen Limited; Complete Time: 14:07 [facility] 06/17 15:11 Order name: Basic Metabolic Panel [facility] 06/17 15:11 Order name: Basic Metabolic Panel [facility] 06/17 15:11 Order name: CBC with Automated Diff [facility] 06/17 15:11 Order name: CBC with Automated Diff [facility] 06/17 15:34 Order name: Urine Dipstick-Ancillary; Complete Time: 15:34 [facility] 06/17 10:36 Order name: IV Saline Lock; Complete Time: 12:26 [facility] 06/17 10:36 Order name: Labs collected and sent; Complete Time: 12:26 [facility] 06/17 10:36 Order name: Urine Dipstick-Ancillary (obtain specimen); Complete Time: 15:34 [facility] 06/17 15:04 Order name: NPO EDMS Administered Medications: 16:45 Discontinued: Lactated Ringers Solution 1000 ml IV at 250 ml/hr continuous em6 12:20 Drug: NS 0.9% 1000 ml Route: IV; Rate: 1 bolus; Site: right antecubital; vg1 13:50 Follow up: Response: No adverse reaction; IV Intake: 1000ml em6 12:21 Drug: Zofran (Ondansetron) 4 mg Route: IVP; Site: right antecubital; vg1 13:00 Follow up: Response: No adverse reaction em6 12:23 Drug: Pepcid (famotidine) 20 mg Route: IVP; Site: right antecubital; vg1 13:00 Follow up: Response: No adverse reaction em6 13:15 Drug: Zosyn (piperacillin-tazobactam) 3.375 grams Route: IVPB; Infused Over: 60 mins; em6 Site: right antecubital; 14:20 Follow up: Response: No adverse reaction; IV Status: Completed infusion; IV Intake: em6 100ml 13:15 Drug: morphine 4 mg Route: IVP; Infused Over: 4 mins; Site: right antecubital; em6 14:15 Follow up: Response: No adverse reaction; RASS: Alert and Calm (0) em6 14:30 Drug: Lactated Ringers Solution 1000 ml Route: IV; Rate: 250 ml/hr; Site: right em6 antecubital; 14:55 Drug: NS 0.9% 1700 ml Route: IV; Rate: bolus; Site: right antecubital; em6 16:28 Follow up: Response: No adverse reaction; IV Status: Completed infusion; IV Intake: em6 1700ml Disposition: 17:12 Co-signature as Attending Physician, Akshat Jamison MD. rn Disposition Summary: 06/17/22 14:39 Hospitalization Ordered Hospitalization Status: Inpatient Admission [facility] Provider: Guera Do Location: Telemetry/MedSurg (Inpatient) [facility] Condition: Stable [facility] Problem: new [facility] Symptoms: are unchanged [facility] Bed/Room Type: Standard [facility] Room Assignment: 408(06/17/22 15:54) bd Diagnosis - Acute Pancreatitis [facility] Forms: - Medication Reconciliation Form m - SBAR form [facility] Signatures: Dispatcher [employer] EDNan Perea Joel, PA PA Akshat Chau MD MD rn Garcia, Victoria, RN RN vg1 Michelle Beltran RN RN ld1 Janny Chu, RN RN em6 Corrections: (The following items were deleted from the chart) 13:14 10:40 Abdomen Pelvis W Con+CT.RAD.BRZ ordered. EDMS EDMS 13:36 13:11 Abdomen Pelvis Wo Con+CT.RAD.BRZ ordered. EDMS EDMS 15:54 14:39 jmm bd
--- NOTE | 2022-06-17 14:39 | ER ---
Nurse's Notes [facility] Name: Farhad Sapp Age: 66 yrs Sex: Male : 1955 Arrival Date: 06/17/2022 Time: 09:50 Bed 26 Private MD: Diagnosis: Acute Pancreatitis Presentation: 06/17 11:13 Chief complaint: Patient states: Constipation X 2 days, SILVER lower back pain, vomiting ld1 since last night, abdominal bloating/pain. Coronavirus screen: Client presents with at least one sign or symptom that may indicate coronavirus-19. Standard/surgical mask placed on the client. Ebola Screen: No symptoms or risks identified at this time. Initial Sepsis Screen: Does the patient meet any 2 criteria? No. Patient's initial sepsis screen is negative. Does the patient have a suspected source of infection? No. Patient's initial sepsis screen is negative. Risk Assessment: Do you want to hurt yourself or someone else? Patient reports no desire to harm self or others. Onset of symptoms was June 17, 2022. 11:13 Method Of Arrival: Ambulatory ld1 11:13 Acuity: DAYO 3 ld1 Triage Assessment: 11:13 General: Appears in no apparent distress. comfortable, Behavior is calm, cooperative, ld1 appropriate for age. Pain: Complains of pain in abdomen Pain does not radiate. Pain currently is 8 out of 10 on a pain scale. Quality of pain is described as pressure, sharp, throbbing, Pain began 1 day ago. Is intermittent. EENT: No signs and/or symptoms were reported regarding the EENT system. Neuro: Level of Consciousness is awake, alert, obeys commands, Oriented to person, place, time, situation, Appropriate for age. Cardiovascular: Capillary refill < 3 seconds Patient's skin is warm and dry. Respiratory: Airway is patent Respiratory effort is even, unlabored. GI: Abdomen is round distended, Reports lower abdominal pain, upper abdominal pain, bloating, nausea. : No signs and/or symptoms were reported regarding the genitourinary system. Derm: No signs and/or symptoms reported regarding the dermatologic system. Musculoskeletal: No signs and/or symptoms reported regarding the musculoskeletal system. Historical: - Allergies: 11:13 No Known Allergies; ld1 - Home Meds: 11:13 amlodipine 2.5 mg tab 1 tab once daily [Active]; aspirin 81 mg Oral TbEC 1 tab once ld1 daily [Active]; atorvastatin 80 mg Oral tab 1 tab once daily [Active]; 11:13 metoprolol tartrate 25 mg Oral tab 1 tab 2 times per day [Active]; furosemide 40 mg ld1 Oral tab 1 tab once daily [Active]; telmisartan 80 mg oral tab 1 tab [Active]; - PMHx: 11:13 High Cholesterol; Hypertension; ld1 - PSHx: 11:13 None; ld1 - Immunization history:: Adult Immunizations up to date, Client reports receiving the 2nd dose of the Covid vaccine. - Social history:: Smoking status: Patient denies any tobacco usage or history of. Patient uses alcohol, on a daily basis. Screenin:40 Abuse screen: Denies threats or abuse. Nutritional screening: No deficits noted. em6 Tuberculosis screening: No symptoms or risk factors identified. Fall Risk IV access (20 points). Assessment: 12:40 General: Appears uncomfortable, Behavior is cooperative. Pain: Complains of pain in em6 back and right lower quadrant and right upper quadrant and abdomen Pain currently is 10 out of 10 on a pain scale. Quality of pain is described as pressure, sharp. Neuro: Level of Consciousness is awake, alert, obeys commands, Oriented to person, place, time, situation. Cardiovascular: Patient's skin is warm and dry. Respiratory: Airway is patent Respiratory effort is even, unlabored, Respiratory pattern is regular, symmetrical, Breath sounds are clear bilaterally. GI: Abdomen is distended, Abdomen is tender to palpation X 4 quads. Reports upper abdominal pain, constipation, nausea, vomiting. : No signs and/or symptoms were reported regarding the genitourinary system. EENT: No signs and/or symptoms were reported regarding the EENT system. Derm: No signs and/or symptoms reported regarding the dermatologic system. Musculoskeletal: Circulation, motion, and sensation intact. Range of motion: intact in all extremities. 13:40 Reassessment: No changes from previously documented assessment. Patient and/or family em6 updated on plan of care and expected duration. Pain level reassessed. Patient is alert, oriented x 3, equal unlabored respirations, skin warm/dry/pink. 14:40 Reassessment: No changes from previously documented assessment. Patient and/or family em6 updated on plan of care and expected duration. Pain level reassessed. Patient is alert, oriented x 3, equal unlabored respirations, skin warm/dry/pink. 15:40 Reassessment: No changes from previously documented assessment. Patient and/or family em6 updated on plan of care and expected duration. Pain level reassessed. Patient is alert, oriented x 3, equal unlabored respirations, skin warm/dry/pink. 16:40 Reassessment: No changes from previously documented assessment. Patient and/or family em6 updated on plan of care and expected duration. Pain level reassessed. Patient is alert, oriented x 3, equal unlabored respirations, skin warm/dry/pink. Vital Signs: 11:13 BP 141 / 81; Pulse 123; Resp 22; Temp 97.6(O); Pulse Ox 97% on R/A; Weight 90.72 kg; ld1 Height 6 ft. 0 in. (182.88 cm); Pain 8/10; 12:37 BP 142 / 84; Pulse 120; Resp 22; Pulse Ox 98% on R/A; em6 14:15 BP 150 / 89; Pulse 91; Resp 20; Pulse Ox 100% on R/A; em6 15:30 BP 135 / 78; Pulse 110; Resp 20; Pulse Ox 97% on R/A; em6 16:00 BP 124 / 68; Pulse 110; Resp 20; Pulse Ox 96% on R/A; em6 11:13 Body Mass Index 27.12 (90.72 kg, 182.88 cm) ld1 ED Course: 09:50 Patient arrived in ED. rg4 10:02 Baldev Ordonez PA is PHCP. jmm 10:02 Akshat Jamison MD is Attending Physician. jmm 11:13 Arm band placed on right wrist. ld1 11:17 Triage completed. ld1 12:13 Janny Chu, LAURITA is Primary Nurse. em6 12:18 Initial lab(s) drawn, by me, sent to lab. Inserted saline lock: 20 gauge in right vg1 antecubital area, using aseptic technique. Blood collected. 12:40 Placed in gown. Bed in low position. Call light in reach. Side rails up X2. Pulse ox em6 on. NIBP on. Warm blanket given. 13:36 Abdomen In Process Unspecified. EDMS 13:37 Blood Culture Adult (2) Sent. em6 13:37 Lactate Sent. em6 13:57 US Abdomen Limited In Process Unspecified. EDMS 14:38 Guera Do MD is Hospitalizing Provider. jmm 16:46 No provider procedures requiring assistance completed. Patient admitted, IV remains in em6 place. Administered Medications: 16:45 Discontinued: Lactated Ringers Solution 1000 ml IV at 250 ml/hr continuous em6 12:20 Drug: NS 0.9% 1000 ml Route: IV; Rate: 1 bolus; Site: right antecubital; vg1 13:50 Follow up: Response: No adverse reaction; IV Intake: 1000ml em6 12:21 Drug: Zofran (Ondansetron) 4 mg Route: IVP; Site: right antecubital; vg1 13:00 Follow up: Response: No adverse reaction em6 12:23 Drug: Pepcid (famotidine) 20 mg Route: IVP; Site: right antecubital; vg1 13:00 Follow up: Response: No adverse reaction em6 13:15 Drug: Zosyn (piperacillin-tazobactam) 3.375 grams Route: IVPB; Infused Over: 60 mins; em6 Site: right antecubital; 14:20 Follow up: Response: No adverse reaction; IV Status: Completed infusion; IV Intake: em6 100ml 13:15 Drug: morphine 4 mg Route: IVP; Infused Over: 4 mins; Site: right antecubital; em6 14:15 Follow up: Response: No adverse reaction; RASS: Alert and Calm (0) em6 14:30 Drug: Lactated Ringers Solution 1000 ml Route: IV; Rate: 250 ml/hr; Site: right em6 antecubital; 14:55 Drug: NS 0.9% 1700 ml Route: IV; Rate: bolus; Site: right antecubital; em6 16:28 Follow up: Response: No adverse reaction; IV Status: Completed infusion; IV Intake: em6 1700ml Medication: 16:47 VIS not applicable for this client. em6 Intake: 13:50 IV: 1000ml; Total: 1000ml. em6 14:20 IV: 100ml; Total: 1100ml. em6 16:28 IV: 1700ml; Total: 2800ml. em6 Outcome: 14:39 Decision to Hospitalize by Provider. jmm 16:46 Admitted to Tele accompanied by nurse, via wheelchair, room 408, Report called to em6 sukumar soliman 16:46 Condition: stable 16:46 Instructed on the need for admit, Demonstrated understanding of instructions. 16:47 Patient left the ED. em6 Signatures: Dispatcher [employer] EDMS Baldev Ordonez PA PA jmm Garcia, Rubi rg4 Mariela Higgins, RN RN vg1 Michelle Beltran RN RN ld1 Janny Chu, RN RN em6 Corrections: (The following items were deleted from the chart) 13:36 13:19 In radiology for Abdomen Pelvis Wo Con+CT.RAD.BRZ. EDMS EDMS
[2022-06-17] MEDS ORDERED: NA CHLORIDE 0.9% 2,000 ML ONE (14:52)
[2022-06-17] MEDS ORDERED: ACETAMINOPHEN 325 MG TABLET PO PRN (15:04)
[2022-06-17] MEDS ORDERED: ONDANSETRON 4 MG/2 ML VIAL IV PRN (15:08)
[2022-06-17] MEDS ORDERED: LABETALOL 20 MG/4ML SYRINGE IV PRN (15:09)
--- NOTE | 2022-06-17 15:12 | P.HP ---
Certification for Inpatient Patient admitted to: Inpatient With expected LOS: >2 Midnights Patient will require the following post-hospital care: None Practitioner: I am a practitioner with admitting privileges, knowledge of patient current condition, hospital course, and medical plan of care. Services: Services provided to patient in accordance with Admission requirements found in Title 42 Section 412.3 of the Code of Federal Regulations Patient History Date of Service: 06/18/22 Reason for admission: Abdominal pain, nausea and vomiting. History of Present Illness: Patient is a 66-year-old male with a past medical history significant for hyperlipidemia, hypertension alcohol abuse who presents with complaint of nausea and vomiting onset yesterday. Patient also reported generalized abdominal pain rated as 8/10 in severity and described as aching in quality. Patient reported associated signs and symptoms of abdominal bloating, subjective fever, chills and generalized malaise. Patient reports drinking 3-4 shots of whiskey every day. Patient denies any other signs or symptoms. Symptoms are aggravated or relieved by nothing. Patient decided to present to the hospital due to worsening symptoms. Allergies No Known Allergies Allergy (Verified 06/10/18 13:52) Home Medications: Amlodipine Besylate 5 mg PO DAILY 04/23/18 Aspirin [Aspir-Low] 81 mg PO DAILY 04/23/18 Atorvastatin Calcium [Lipitor] 80 mg PO BEDTIME 04/23/18 Telmisartan [Micardis] 80 mg PO BID 04/23/18 - Past Medical/Surgical History -: Hyperlipidemia -: Hypertension -: Alcohol abuse Past Surgical History: Reviewed- Non-Contributory - Family History Family History: Reviewed- Non-Contributory - Social History Smoking Status: Unknown if ever smoked Alcohol use: Yes CD- Drugs: No Caffeine use: Yes Place of Residence: Home Review of Systems General: Fever, Chills, Malaise Eyes: Unremarkable ENT: Unremarkable Cardiovascular: Unremarkable Gastrointestinal: Nausea, Vomiting, Abdominal Pain, Other (Abdominal bloating.) Genitourinary: Unremarkable Integumentary: Unremarkable Neurological: Unremarkable Lymphatics: Unremarkable Physical Examination - Physical Exam General: Alert, Oriented x3, Mild distress HEENT: Atraumatic, Normocephalic, PERRLA Neck: Supple, 2+ carotid pulse no bruit, JVD not distended, Without JVD or thyroid abnormality Respiratory: Clear to auscultation bilaterally, Normal air movement Cardiovascular: No edema, Normal pulses, Normal S1 S2 Capillary refill: <2 Seconds Gastrointestinal: Normal bowel sounds, Distended Musculoskeletal: No clubbing, No swelling, No contractures, No erythema Integumentary: No rashes, No breakdown, No significant lesion, No erythema Neurological: Normal gait, Normal speech, Normal affect Lymphatics: No axilla or inguinal lymphadenopathy - Studies Laboratory Data (last 24 hrs) 06/17/22 13:15: PT 13.2 H, INR 1.20 06/17/22 12:20: Sodium 133 L, Potassium 2.6 L*, BUN 22 H, Creatinine 1.92 H, Glucose 153 H, Total Bilirubin 2.8 H, AST 103 H, ALT 77, Alkaline Phosphatase 120 H, Lipase 5486 H 06/17/22 12:20: WBC 22.80 H*, Hgb 15.6, Hct 45.4, Plt Count 306 Assessment and Plan - Plan -- Acute pancreatitis. Lipase elevated. CT abdomen indicates acute pancreatitis. We will keep patient NPO. Continue IV hydration. Will reassess lipase in a.m. --Sepsis POA. Likely urosepsis. Blood cultures pending. Continue antibiotics. --UTI POA. Continue antibiotics. Urine cultures pending. --Leukocytosis. Blood cultures pending. Continue antibiotics. --Nausea and vomiting. Antiemetics on board. Continue IV hydration. --Hyperlipidemia. Continue statin. --Hypertension. Stable. Continue home medications. --Hypokalemia. Replete as needed. --Acute pain. We will manage pain with current pain medication regimen. --Alcohol abuse. Continue Librium. CIWA protocol. Patient counseled on alcohol cessation. Continue supportive care --DVT prophylaxis with heparin subQ. Discharge Plan: Home Plan to discharge in: Greater than 2 days - Advance Directives Does patient have a Living Will: No Does patient have a Durable POA for Healthcare: No - Code Status/Comfort Care Code Status Assessed: Yes Code Status: Full Code Physician Review: Patient Assessed, Agree with Above Assessment and Plan Critical Care: No
[2022-06-17 15:34] LABS: Urine Blood 2+ (Negative); Urine Glucose Negative (Negative); Urine Protein 2+ (Negative); Urine Specific Gravity >=1.030 (1.005-1.030); Urine pH 5.5 (5.0-7.0)
[2022-06-17 15:48] LABS: SARS-CoV-2 Antigen Rapid Res Negative (Negative)
[2022-06-17 16:53] VITALS: BMI 27.1
[2022-06-17] MEDS ORDERED: PIPER TAZO 3.375 GM in NA CHLORIDE 0.9% 100 ML IV SCH (17:00)
[2022-06-17] MEDS: HYDROMORPHONE HCL 1 MG/ML INJ IV PRN ×2 (17:05→21:18)
[2022-06-17] MEDS: NA CHLORIDE 0.9% 1,000 ML IV SCH (17:07)
[2022-06-17] MEDS ORDERED: INFLUENZA VACCINE (for 6+ mo) 0.5 ML DOSE IMVAC ONE (19:00)
[2022-06-17] MEDS ORDERED: PNEUMOCOCCAL VACCINE 0.5 ML IMVAC ONE (19:00)
[2022-06-17] MEDS: KCL 20 MEQ/100 mL IVPB 20 MEQ/100 ML BAG IV SCH ×2 (21:00→23:00)
[2022-06-17] MEDS: CEFEPIME 1 GM in NA CHLORIDE 0.9% 100 ML IV SCH (21:00)
[2022-06-17] MEDS: HEPARIN 5000 UNIT/ML 1 ML VIAL SQ SCH (21:00)
[2022-06-17] MEDS ORDERED: KCL 20 MEQ/100 mL IVPB 100 ML IV ONE ×2 (21:04→23:15)
[2022-06-17 21:57] LABS: Thyroid Stimulating Hormone 0.407 uIU/mL (0.360-3.740)
[2022-06-18] MEDS: HYDROMORPHONE HCL 1 MG/ML INJ IV PRN (01:56)
[2022-06-18] MEDS: NA CHLORIDE 0.9% 1,000 ML IV SCH ×2 (02:00→20:23)
[2022-06-18 04:00] LABS: Absolute Lymphocytes (CBC) 0.7 K/uL (0.7-4.9); Hematocrit 39.8 % (39.6-49.0); Lymphocytes % 3.1 % (15.3-44.8); MCV 96.8 fL (80-100); MPV 8.7 fL (7.6-11.3); RBC Red Blood Cell Count 4.11 M/uL (4.33-5.43)
[2022-06-18 04:16] LABS: Potassium 3.4 mmol/L (3.5-5.1)
[2022-06-18] MEDS: KCL 20 MEQ/100 mL IVPB 20 MEQ/100 ML BAG IV SCH ×4 (05:17→20:23)
[2022-06-18] MEDS: CEFEPIME 1 GM in NA CHLORIDE 0.9% 100 ML IV SCH (08:16)
[2022-06-18] MEDS: HEPARIN 5000 UNIT/ML 1 ML VIAL SQ SCH ×2 (08:16→20:30)
[2022-06-18] MEDS ORDERED: chlordiazePOXIDE HCl 5 MG CAP PO ONE (09:33)
[2022-06-18] MEDS ORDERED: NA CHLORIDE 0.9% 500 ML IV ONE (09:34)
[2022-06-18] MEDS ORDERED: DOCUSATE NA 100 MG CAP PO ONE (09:35)
[2022-06-18] MEDS ORDERED: BISACODYL E.C. 5 MG TAB PO PRN (09:35)
[2022-06-18] MEDS: AMLODIPINE 5 MG TAB PO SCH (10:01)
[2022-06-18] MEDS: chlordiazePOXIDE HCl 5 MG CAP PO SCH ×2 (14:13→20:30)
[2022-06-18] MEDS: CEFEPIME 2 GM in NA CHLORIDE 0.9% 100 ML IV SCH (20:29)
[2022-06-18] MEDS: ATORVASTATIN 80 MG TAB PO SCH (20:30)
[2022-06-18] MEDS: DOCUSATE NA 100 MG CAP PO SCH (20:30)
[2022-06-18] MEDS ORDERED: TELMISARTAN 80 MG PO SCH (21:00)
[2022-06-18] MEDS: VALSARTAN 160 MG TAB PO SCH (21:51)
[2022-06-19] MEDS: NA CHLORIDE 0.9% 1,000 ML IV SCH ×5 (03:04→17:04)
[2022-06-19] MEDS: KCL 20 MEQ/100 mL IVPB 20 MEQ/100 ML BAG IV SCH ×2 (05:16→10:45)
[2022-06-19] MEDS: HEPARIN 5000 UNIT/ML 1 ML VIAL SQ SCH ×2 (09:31→21:20)
[2022-06-19] MEDS: chlordiazePOXIDE HCl 5 MG CAP PO SCH ×3 (09:31→21:19)
[2022-06-19] MEDS: AMLODIPINE 5 MG TAB PO SCH (09:32)
[2022-06-19] MEDS: DOCUSATE NA 100 MG CAP PO SCH ×2 (09:32→21:19)
[2022-06-19] MEDS: ASPIRIN EC 81 MG TAB PO SCH (09:32)
[2022-06-19] MEDS: VALSARTAN 160 MG TAB PO SCH ×2 (09:32→21:20)
[2022-06-19] MEDS: CEFEPIME 2 GM in NA CHLORIDE 0.9% 100 ML IV SCH ×2 (09:54→21:21)
[2022-06-19] MEDS ORDERED: METOPROLOL TAR 25 MG TAB PO ONE (11:11)
[2022-06-19 13:44] LABS: Absolute Lymphocytes (CBC) 0.8 K/uL (0.7-4.9); Hematocrit 37.9 % (39.6-49.0); Lymphocytes % 4.6 % (15.3-44.8); MCV 97.6 fL (80-100); MPV 8.2 fL (7.6-11.3); RBC Red Blood Cell Count 3.88 M/uL (4.33-5.43)
[2022-06-19 14:02] LABS: Albumin 2.1 g/dL (3.4-5.0); Bilirubin Total 2.1 mg/dL (0.2-1.0); Potassium 3.5 mmol/L (3.5-5.1); Protein, Total 6.2 g/dL (6.4-8.2)
[2022-06-19] MEDS: METOPROLOL TAR 50 MG TAB PO SCH (17:04)
[2022-06-19] MEDS: ATORVASTATIN 80 MG TAB PO SCH (21:20)
[2022-06-20 00:14] VITALS: O2SAT 94
[2022-06-20] MEDS: NA CHLORIDE 0.9% 1,000 ML IV SCH ×2 (00:21→00:33)
[2022-06-20] MEDS ORDERED: POTASSIUM 25 MEQ EFFERV TAB PO ONE (04:35)
[2022-06-20] MEDS: METOPROLOL TAR 50 MG TAB PO SCH (05:09)
[2022-06-20 08:43] VITALS: BP 135/75; TEMP 99.2
[2022-06-20] MEDS: VALSARTAN 160 MG TAB PO SCH (09:01)
[2022-06-20] MEDS: DOCUSATE NA 100 MG CAP PO SCH (09:01)
[2022-06-20] MEDS: ASPIRIN EC 81 MG TAB PO SCH (09:01)
[2022-06-20] MEDS: chlordiazePOXIDE HCl 5 MG CAP PO SCH (09:01)
[2022-06-20] MEDS: HEPARIN 5000 UNIT/ML 1 ML VIAL SQ SCH (09:02)
[2022-06-20] MEDS: AMLODIPINE 5 MG TAB PO SCH (09:02)
[2022-06-20 09:19] LABS: Absolute Lymphocytes (CBC) 0.8 K/uL (0.7-4.9); Hematocrit 36.7 % (39.6-49.0); Lymphocytes % 6.1 % (15.3-44.8); MCV 96.8 fL (80-100); MPV 7.9 fL (7.6-11.3); RBC Red Blood Cell Count 3.79 M/uL (4.33-5.43)
[2022-06-20] MEDS: CEFEPIME 2 GM in NA CHLORIDE 0.9% 100 ML IV SCH (09:48)
[2022-06-20 10:25] LABS: Potassium 3.3 mmol/L (3.5-5.1)
--- NOTE | 2022-06-20 12:05 | P.PN ---
Subjective Date of Service: 06/18/22 Subjective: No new changes, No C/O voiced, Improving Review of Systems 10-point ROS is otherwise unremarkable Physical Examination - Vital Signs Temperature: 99.2 F Blood Pressure: 135/75 Pulse: 88 Respirations: 12 Pulse Ox (%): 92 - Physical Exam General: Alert, In no apparent distress HEENT: Atraumatic, PERRLA, EOMI Neck: Supple, JVD not distended Respiratory: Clear to auscultation bilaterally, Normal air movement Cardiovascular: Regular rate/rhythm, Normal S1 S2 Gastrointestinal: Normal bowel sounds, No tenderness Musculoskeletal: No tenderness Integumentary: No rashes Neurological: Normal speech, Normal tone, Normal affect Lymphatics: No axilla or inguinal lymphadenopathy - Studies Medications List Reviewed: Yes Assessment & Plan - Problems (Diagnosis) (1) Alcoholic pancreatitis Current Visit: Yes Status: Acute - Plan -IV fluids -Prevention -CBC, CMP, lipase, stool cultures -N.p.o. -Repeat abdominal film -Antiemetics Discharge Plan: Home Plan to discharge in: Greater than 2 days - Advance Directives Does patient have a Living Will: No Does patient have a Durable POA for Healthcare: No - Code Status/Comfort Care Code Status: Full Code Physician Review: Patient Assessed, Agree with Above Assessment and Plan Critical Care: No Time Spent Managing PTS Care (In Minutes): 35
--- NOTE | 2022-06-20 12:07 | P.DS ---
Discharge Date: 06/20/22 Disposition: ROUTINE DISCHARGE Discharge Condition: GOOD Reason for Admission: Abdominal pain, nausea and vomiting. - Problems (1) Alcoholic pancreatitis Current Visit: Yes Status: Acute Brief History of Present Illness: Patient is a 66-year-old male with a past medical history significant for hyperlipidemia, hypertension alcohol abuse who presents with complaint of nausea and vomiting onset yesterday. Patient also reported generalized abdominal pain rated as 8/10 in severity and described as aching in quality. Patient reported associated signs and symptoms of abdominal bloating, subjective fever, chills and generalized malaise. Patient reports drinking 3-4 shots of whiskey every day. Patient denies any other signs or symptoms. Symptoms are aggravated or relieved by nothing. Patient decided to present to the hospital due to worsening symptoms. Hospital Course: Patient has done well during hospital stay. Clinical symptoms are much better. At this time, patient is stable for discharge home. Vital Signs/Physical Exam: Temp Pulse Resp BP Pulse Ox 99.2 F 88 12 135/75 92 06/20/22 12:05 06/20/22 12:05 06/20/22 12:05 06/20/22 12:05 06/20/22 12:05 General: Alert, In no apparent distress, Oriented x3 Laboratory Data at Discharge: WBC 13.40 K/uL (4.3-10.9) H 06/20/22 09:04 Hgb 12.7 g/dL (13.6-17.9) L 06/20/22 09:04 Hct 36.7 % (39.6-49.0) L 06/20/22 09:04 Plt Count 228 K/uL (152-406) 06/20/22 09:04 PT 13.2 SECONDS (9.5-12.5) H 06/17/22 13:15 INR 1.20 06/17/22 13:15 Sodium 137 mmol/L (136-145) 06/20/22 10:02 Potassium Cancelled 06/20/22 Unknown BUN 8 mg/dL (7-18) 06/20/22 10:02 Creatinine 0.86 mg/dL (0.55-1.3) 06/20/22 10:02 Glucose 176 mg/dL (74-106) H 06/20/22 10:02 Total Bilirubin 2.1 mg/dL (0.2-1.0) H 06/19/22 13:26 AST 67 U/L (15-37) H 06/19/22 13:26 ALT 45 U/L (12-78) 06/19/22 13:26 Alkaline Phosphatase 103 U/L (45-117) 06/19/22 13:26 Triglycerides 240 mg/dL (<150) H 06/17/22 21:09 Cholesterol 80 mg/dL (<200) 06/17/22 21:09 HDL Cholesterol 28 mg/dL (40-60) L 06/17/22 21:09 Cholesterol/HDL Ratio 2.86 06/17/22 21:09 Lipase 511 U/L (73-393) H 06/20/22 10:02 Home Medications: Amlodipine Besylate 5 mg PO DAILY 04/23/18 Aspirin [Aspir-Low] 81 mg PO DAILY 04/23/18 Atorvastatin Calcium [Lipitor] 80 mg PO BEDTIME 04/23/18 Telmisartan [Micardis] 80 mg PO BID 04/23/18 Metoprolol Tartrate [Lopressor*] 50 mg PO BID 6AM 6PM #60 tab 06/20/22 chlordiazePOXIDE HCl [Chlordiazepoxide HCl] 20 mg PO TID #70 06/20/22 chlordiazePOXIDE HCl [Chlordiazepoxide HCl] 20 mg PO TID #70 cap 06/20/22 New Medications: chlordiazePOXIDE HCl [Chlordiazepoxide HCl] 20 mg PO TID #70 chlordiazePOXIDE HCl [Chlordiazepoxide HCl] 20 mg PO TID #70 cap Metoprolol Tartrate [Lopressor*] 50 mg PO BID 6AM 6PM #60 tab Physician Discharge Instructions: -DC IV and DC home -Follow-up with PCP in 1 to 2 weeks -Follow-up with gastroenterology-Dr. Castano or Dr. Ramon in 1 to 2 weeks -Please call Dr. Do at [phone] if any questions regarding hospital stay -Please call nursing station at [phone] if any nursing or medication questions -Return to the emergency room if symptoms worsen Diet: Low-fat Activity: Fall precautions Followup: NONE,NONE [Primary Care Provider] - Time spent managing pt's care (in minutes): 35
--- NOTE | 2022-06-20 12:07 | P.PN ---
Date of Service: 06/19/22 Subjective Subjective: Clinically feeling much better. Symptoms are improving. Has some tremors but much better. Review of Systems 10-point ROS is otherwise unremarkable Physical Examination - Vital Signs Reviewed - Physical Exam General: Alert, In no apparent distress Respiratory: Clear to auscultation bilaterally, Normal air movement Cardiovascular: Regular rate/rhythm, Normal S1 S2 Gastrointestinal: Normal bowel sounds, No tenderness Neurological: Normal speech, Normal tone, Normal affect Assessment & Plan - Problems (Diagnosis) (1) Alcoholic pancreatitis Current Visit: Yes Status: Acute - Plan Continue with plan of care as mentioned below: -IV fluids -Prevention -CBC, CMP, lipase, stool cultures -Advance diet as tolerated -Antiemetics Discharge Plan: Home Plan to discharge in: In a.m.
[2022-06-20] MEDS ORDERED: POTASSIUM CL SA 10 MEQ TAB PO ONE (12:30)
== END 2022-06-20 13:27 | disposition home or self-care (01) | DRG 871 ==
LOC: ER 09:47 → ERHOLD 14:59 → 4TH 16:10
PROVIDERS: ADMIT Hospitalist; ATTEND Hospitalist
DX: A41.9 Sepsis, unspecified organism (principal); K85.20 Alcohol induced acute pancreatitis without necrosis or infection; N39.0 Urinary tract infection, site not specified; F10.10 Alcohol abuse, uncomplicated; E87.6 Hypokalemia; R11.2 Nausea with vomiting, unspecified; I10 Essential (primary) hypertension; E78.5 Hyperlipidemia, unspecified; Z71.41 Alcohol abuse counseling and surveillance of alcoholic; Z79.82 Long term (current) use of aspirin; Z79.899 Other long term (current) drug therapy; Z20.822 Contact with and (suspected) exposure to COVID-19
CPT/HCPCS: 36415; 74176; 76705; 80048; 80053; 80061; 81003; 82565; 83605; 83690; 83880; 84132; 84439; 84443; 85025; 85610; 87040; 87205; 87811; 96361; 96365; 96375; 99285; J0692; J1170; J1644; J2405; J2543; J3480; J7030; J7040; J7120